=== PATIENT | female | born 1945 | race Asian ===

== ENCOUNTER 2024-05-27 05:28 | Observation (INO) | payer OTHER, SELFPAY ==
[2024-05-27] VITALS (10 sets, daily range): BP systolic 111–156; BP diastolic 58–80; PULSE 74; O2SAT 100; BMI 21.2
--- NOTE | 2024-05-27 00:46 | ED.GENMED ---
History of Present Illness
General
Chief Complaint: Fall
Time Seen by Provider: 05/27/24 00:31
History of Present Illness
History of Present Illness:
Patient is a 79-year-old woman with history of Parkinson's, hypertension, hyperlipidemia presenting to the emergency department back pain. Patient states that she had a fall 2 days ago. She tripped while using her walker. She landed on her right
side. She did not hit her head or lose consciousness. She is not on any blood thinners. She started develop lower back pain that radiated down her right leg. Today the pain was so severe that she was unable to ambulate with a walker and had to
use a wheelchair. Patient's professional organizer then brought her in for further evaluation. Patient denies any numbness tingling. She does have weakness secondary to the pain. She does have history of rib fracture. No chest wall pain today. No headache
Phy Exam
Physical Exam
Physical Exam:
GENERAL: no acute distress
HEENT: atraumatic, extraocular muscles intact, no signs of entrapment, dentition intact, no other obvious trauma
NECK: no midline tenderness, normal range of motion,
BACK: Lower lumbar midline tenderness, no other obvious trauma
CHEST: no tenderness, no flail segment, no subcutaneous emphysema, no other obvious trauma
LUNGS: clear to auscultation bilaterally
CARDIOVASCULAR: regular rate and rhythm
ABDOMEN: soft, non-tender, no masses, no other obvious trauma
PELVIS: stable, no obvious injury, mild tenderness over lower right hip
EXTREMITIES: moving all extremities, distal pulses intact, no other obvious trauma
NEUROLOGIC: awake, alert x 3, no focal deficits
Course
Orders/Labs/Results
Orders:
Orders
05/27/24 00:45
CT Abd/pelvis W Iv Cont Urgent
Comment:
Reason For Exam: back pain, fall
05/27/24 01:17
Basic Metabolic Panel Urgent
Complete Blood Count/With Diff Urgent
05/27/24 01:43
Add On- LAB Stat
Tests Added?: lactate
Urinalysis Reflex To Culture Urgent
Date Specimen was Collected: 05/27/24
Time Specimen was Collected: 02:09
05/27/24 01:50
Lactic Acid Urgent
Abnormal Lab Results
05/27/24
01:17
RBC 2.98 L 10^6/uL
(4.20-5.40)
Hgb 9.4 L g/dL
(12.0-16.0)
Hct 26.5 L %
(37.0-47.0)
MCH 31.5 H pg
(27.0-31.0)
Monocytes % 9.5 H %
(1.7-9.3)
Chloride 111 H mmol/L
(98-107)
Carbon Dioxide 14 L* mmol/L
(22-30)
BUN 35 H mg/dl
(7-17)
Glucose 115 H mg/dl
(70-99)
05/27/24 01:17
05/27/24 01:17
Vital Signs
Initial and Last Documented VS:
Initial Vital Signs
Temp Pulse Resp BP Pulse Ox
98.9 F 71 16 144/77 100
05/27/24 00:06 05/27/24 00:06 05/27/24 00:06 05/27/24 00:06 05/27/24 00:06
Last Documented Vital Signs
Temp Pulse Resp BP Pulse Ox
98.9 F 71 16 144/77 100
05/27/24 00:06 05/27/24 00:06 05/27/24 00:06 05/27/24 00:06 05/27/24 00:06
MDM/Problems Addressed
Differential Diagnosis Includes:
Patient is a 79-year-old woman presenting to the emergency department after a fall 2 days ago now with worsening lower back pain that radiates down to her right hip. Vitals are unremarkable and exam does show lower lumbar spinal tenderness as well
as tenderness over the hip with some limited range of motion secondary to the pain. Concern for compression fracture versus hip fracture. She did not hit her head or lose consciousness and has no neurodeficits to suggest traumatic intracranial
injury. Will obtain CT abdomen pelvis to rule out fractures.
*Critical Care Note
Total Time (30-74mins, 75-104mins- exclusive of procedures): Not Applicable
Update Note
Update Note:
Received critical bicarb. Patient is overall well-appearing. Will add on lactate and check urine. Pending CT scan at this time. After shared decision making patient will benefit from rehab placement given the difficulty with ambulation.
Anticipate discharge.
ED Attending Note
-
Portions of this chart may have been created with voice recognition software.� Occasional wrong word or��sound alike� substitutions may have occurred due to the inherent limitations of voice recognition software.
Discharge Plan
Departure
Referrals:
Jonatan Sommer MD [Family Provider] -
Interventions
Interventions:
*Risk Screen - Suicide Last Done: 05/27/24 00:06
*General Assessment Last Done: 05/27/24 00:06
*Neglect/Abuse Screening Last Done: 05/27/24 00:06
ED- Fall Risk Assessment Last Done: 05/27/24 00:06
*ED COVID-19 Vaccine History Last Done: 05/27/24 00:06
ED-Musculoskeletal Assessment Last Done: 05/27/24 00:41
ED- Neurological Assessment Last Done: 05/27/24 00:41
ED-Skin Assessment Last Done: 05/27/24 00:41
Discharge Date and Time
Print Language: SETSWANA
[2024-05-27 01:37] LABS: % Basophils 0.5 % (0-2); % Eosinophils 2.3 % (0-6); % Immature Granulocytes 0.2 % (0-0.5); % Lymphocytes 23.4 % (20.5-51.1); % Monocytes 9.5 % (1.7-9.3); % Neutrophils 64.1 % (42.2-75.2); Absolute Eosinophils 0.1 10^3/uL (0-0.7); Absolute Lymphocytes 1.3 10^3/uL (1.2-3.4); Absolute Monocytes 0.5 10^3/uL (0.1-0.6); Absolute Neutrophils 3.6 10^3/uL (1.4-6.5); Hematocrit 26.5 % (37.0-47.0); Hemoglobin 9.4 g/dL (12.0-16.0); Mean Corp Hgb Conc. 35.5 g/dL (33.0-37.0); Mean Corpuscular Hgb 31.5 pg (27.0-31.0); Mean Corpuscular Volume 88.9 fL (81.0-99.0); Nucleated Red Blood Cells % 0 %; Red Blood Cell Count 2.98 10^6/uL (4.20-5.40); Red Cell Dist. Width 12.9 % (11.5-14.5); White Blood Cell Count 5.6 10^3/uL (4.8-10.8)
[2024-05-27 01:39] LABS: Blood Urea Nitrogen 35 mg/dl (7-17); Calcium 8.9 mg/dl (8.4-10.2); Carbon Dioxide 14 mmol/L (22-30); Chloride 111 mmol/L (98-107); Glucose 115 mg/dl (70-99); Sodium 141 mmol/L (135-145); eGFR > 60.00
[2024-05-27 02:20] LABS: Urine Albumin Negative (Neg - Trace); Urine Bilirubin Negative (Negative); Urine Character Clear (Clear); Urine Color Yellow; Urine Glucose Negative (Negative); Urine Ketone Trace (Negative); Urine Leukocyte Trace (Negative); Urine Nitrite Negative (Negative); Urine Occult Blood Negative (Negative); Urine Urobilinogen Negative (Neg - 1+)
[2024-05-27 02:33] LABS: Platelet Count 130 10^3/uL (130-400)
[2024-05-27 02:34] LABS: Mean Platelet Volume 10.3 fL (7.4-10.4)
[2024-05-27 03:09] LABS: Urine Squamous Cell >30 /LPF (Few)
[2024-05-27 03:10] LABS: Urine Bacteria Few (Negative); Urine Urothelial Cell >30 /LPF (FEW)
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
[2024-05-27] MEDS: DITROPAN 5 MG PO (07:48)
[2024-05-27] MEDS: SINEMET 25-250 1 TABLET PO ×3 (07:48→21:30)
[2024-05-27] MEDS: ASPIR LOW (ENTERIC COATED) 81 MG PO (07:48)
[2024-05-27] MEDS: LR 500 IV (07:48)
[2024-05-27] MEDS: PROTONIX 40 MG PO (07:48)
[2024-05-27] MEDS: PRAVACHOL 40 MG PO (09:00)
[2024-05-27] MEDS: NORVASC 5 MG PO (09:00)
[2024-05-27] MEDS: LEXAPRO 5 MG PO (09:00)
[2024-05-27 10:09] LABS: Blood Urea Nitrogen 26 mg/dl (7-17); Calcium 9.2 mg/dl (8.4-10.2); Carbon Dioxide 21 mmol/L (22-30); Chloride 107 mmol/L (98-107); Estimated Creatinine Clearance 47 ml/min; Glucose 95 mg/dl (70-99); Iron 75 ug/dl (37-170); Magnesium 2.1 mg/dl (1.6-2.3); Potassium 3.8 mmol/L (3.5-5.1); Sodium 142 mmol/L (135-145); eGFR > 60.00
[2024-05-27 10:18] LABS: Percent Saturation 28 % (20-50); Total Iron Binding Capacity 261 ug/dl (265-497)
[2024-05-27 10:49] LABS: TSH 3.04 uIU/ml (0.47-4.68)
[2024-05-27 11:09] LABS: Vitamin B12 536 pg/ml (239-931)
--- NOTE | 2024-05-27 11:56 | W.PN.HOSP.TC ---
Today's Communication/Plan
-
PT/OT evaluation
As needed analgesics
SNF planning
Assessment / Plan
Assessment / Plan
#Acute on chronic back pain
#H/O T12 and L2 compression fractures
#Ambulatory dysfunction
-following mechanical fall a few days prior to admission
-Has associated radicular symptoms and pain that limits her ambulatory function
-CT scan on arrival showed old age indeterminant compression fractures at T12 and L2
-Currently on Tylenol and Toradol as needed for pain as well as morphine for severe breakthrough
-PT/OT ordered, case management for SNF placement
#Normocytic anemia
-Hemoglobin on arrival was 9.4, no previous labs, unclear baseline
-No obvious signs of bleeding, iron panel consistent with anemia of chronic disease
-Will trend CBC while here
#Hypertension
-Home medication includes amlodipine 5 mg daily
-No known history of hypertensive systemic disease
-Suspect hypotension/orthostasis is bigger issue with H/O Parkinson's
-Will monitor BP closely for here, observe for signs of orthostasis
#Dyslipidemia
-No known ASCVD history, Home regimen includes moderate intensity statin
#Parkinson's disease
-Home medication includes carbidopa levodopa 3 times daily
-No known autonomic complications, no resting tremor on exam
-Stable
#GERD
-Home regimen includes oral PPI daily
-No history of Mireles's esophagus or erosive disease
-No red flag symptoms
DVT prophylaxis: Lovenox
Diet: Regular
CODE STATUS: Full code
Anticipated Discharge: Within 24 hours
Subjective/Interval History
-
Date of Service: May 27, 2024
Patient was seen and examined at the bedside. No acute events overnight. AFVSS this morning.
She states she does have some back pain still, she seems calm and not in pain upon my examination
She denies chest pain, shortness of breath, fevers or chills, nausea or vomiting, urinary issue, abnormal bleeding or bruising, paresthesias or weakness.
Objective Data
-
Labs:
Laboratory Results
05/27/24 05/27/24
01:17 08:59
WBC 5.6
Hgb 9.4 L
Hct 26.5 L
Plt Count 130
Sodium 141 142
Potassium 3.8
Chloride 111 H 107
Carbon Dioxide 14 L* 21 L
BUN 35 H 26 H
Creatinine 0.8 0.8
Glucose 115 H 95
Calcium 8.9 9.2
Vital Signs:
Vital Signs
Temp Pulse Resp BP Pulse Ox
99.3 F 62 16 138/65 97
05/27/24 07:10 05/27/24 07:10 05/27/24 07:10 05/27/24 09:00 05/27/24 07:10
I&O
05/26/24 05/27/24 05/28/24
06:59 06:59 06:59
Intake Total 240 / 240
Output Total 100 / 100
Balance -100 / -100 240 / 240
[2024-05-27] MEDS: LOVENOX 40 MG SC (17:11)
--- NOTE | 2024-05-27 17:14 | CM ---
Alert awake oriented patient who lives with her room mate Toshia in a 1 story home with 3 steps. She is assisted all activates of daily living.Spokew ith her healthcare consultant Mary She has 20 hours of care giving daily.She uses walker wheel chair
,cane.Lucero given pt did not want to sign ,.LUCERO explained to healthcare consultant also .Requested order for OT from .
Had VN in past . No SNF hx
Pharmacy [facility]
PCP Dr Sommer
PLAN Need OT may need SNF with auth
[2024-05-27] MEDS: DELTASONE 20 MG PO (18:03)
[2024-05-27] MEDS: TORADOL 10 MG IV (20:27)
[2024-05-27] MEDS: PREMARIN VAGINAL CREAM 1 APPLIC VAG (21:30)
[2024-05-28 07:18] VITALS: BP 162/80
[2024-05-28 07:52] LABS: Blood Urea Nitrogen 27 mg/dl (7-17); Calcium 9.2 mg/dl (8.4-10.2); Carbon Dioxide 20 mmol/L (22-30); Chloride 106 mmol/L (98-107); Estimated Creatinine Clearance 53 ml/min; Glucose 139 mg/dl (70-99); Potassium 4.4 mmol/L (3.5-5.1); Sodium 141 mmol/L (135-145); eGFR > 60.00
[2024-05-28 08:54] LABS: % Basophils 0.4 % (0-2); % Immature Granulocytes 0.2 % (0-0.5); % Lymphocytes 19.5 % (20.5-51.1); % Monocytes 1.5 % (1.7-9.3); % Neutrophils 78.4 % (42.2-75.2); Absolute Lymphocytes 0.9 10^3/uL (1.2-3.4); Absolute Monocytes 0.1 10^3/uL (0.1-0.6); Absolute Neutrophils 3.8 10^3/uL (1.4-6.5); Hematocrit 31.7 % (37.0-47.0); Hemoglobin 10.9 g/dL (12.0-16.0); Mean Corp Hgb Conc. 34.4 g/dL (33.0-37.0); Mean Corpuscular Hgb 31.2 pg (27.0-31.0); Mean Corpuscular Volume 90.8 fL (81.0-99.0); Mean Platelet Volume 11.1 fL (7.4-10.4); Nucleated Red Blood Cells % 0 %; Platelet Count 153 10^3/uL (130-400); Red Blood Cell Count 3.49 10^6/uL (4.20-5.40); Red Cell Dist. Width 12.5 % (11.5-14.5); White Blood Cell Count 4.8 10^3/uL (4.8-10.8)
[2024-05-28] MEDS: PRAVACHOL 40 MG PO (08:59)
[2024-05-28] MEDS: DELTASONE 20 MG PO (08:59)
[2024-05-28] MEDS: ASPIR LOW (ENTERIC COATED) 81 MG PO (08:59)
[2024-05-28] MEDS: NORVASC 5 MG PO (08:59)
[2024-05-28] MEDS: DITROPAN 5 MG PO (08:59)
[2024-05-28] MEDS: SINEMET 25-250 1 TABLET PO ×3 (08:59→21:46)
[2024-05-28] MEDS: PROTONIX 40 MG PO (08:59)
[2024-05-28] MEDS: LEXAPRO 5 MG PO (08:59)
[2024-05-28 11:26] LABS: Hepatitis C Antibody Negative (Negative)
--- NOTE | 2024-05-28 11:51 | W.PN.HOSP.TC ---
Today's Communication/Plan
-
Continue with PT/OT
As needed analgesia
Discharge planning to SNF
Compression stockings for CVI
Assessment / Plan
Assessment / Plan
#Acute on chronic back pain
#H/O T12 and L2 compression fractures
#Ambulatory dysfunction
-following mechanical fall a few days prior to admission
-Has associated radicular symptoms and pain that limits her ambulatory function
-CT scan on arrival showed old age indeterminant compression fractures at T12 and L2
-Currently on Tylenol and Toradol as needed for pain as well as morphine for severe breakthrough
-PT/OT ordered, case management for SNF placement
#Normocytic anemia
-Hemoglobin on arrival was 9.4, no previous labs, unclear baseline
-No obvious signs of bleeding, iron panel consistent with anemia of chronic disease
-Will trend CBC while here
#Hypertension
-Home medication includes amlodipine 5 mg daily
-No known history of hypertensive systemic disease
-Suspect hypotension/orthostasis is bigger issue with H/O Parkinson's
-Will monitor BP closely for here, observe for signs of orthostasis
#Dyslipidemia
-No known ASCVD history, Home regimen includes moderate intensity statin
#Parkinson's disease
-Home medication includes carbidopa levodopa 3 times daily
-No known autonomic complications, no resting tremor on exam
-Stable
#GERD
-Home regimen includes oral PPI daily
-No history of Mireles's esophagus or erosive disease
-No red flag symptoms
#Chronic venous insufficiency
-Has mild, asymmetric lower extremity edema
-No history of heart disease, no symptoms or other signs suspicious for heart failure
-Encouraged leg elevation as possible, compression stockings
DVT prophylaxis: Lovenox
Diet: Regular
CODE STATUS: Full code
Anticipated Discharge: Within 24 hours
Subjective/Interval History
-
Date of Service: May 28, 2024
Seen and examined while seated in the chair. No acute events overnight. AFVSS this morning.
She does have significant pain with weightbearing. She does state that her pain is better when she is moving then when she first fell at home, also better than when she came to the hospital
She otherwise denies any acute complaints including chest pain, shortness of breath, fevers or chills, nausea, vomiting, diarrhea, constipation, abnormal bleeding or bruising, urinary issue, paresthesias or weakness.
Objective Data
-
Labs:
Laboratory Results
05/28/24
06:10
WBC 4.8
Hgb 10.9 L
Hct 31.7 L
Plt Count 153
Sodium 141
Potassium 4.4
Chloride 106
Carbon Dioxide 20 L
BUN 27 H
Creatinine 0.7
Glucose 139 H
Calcium 9.2
Vital Signs:
Vital Signs
Temp Pulse Resp BP Pulse Ox
98.5 F 66 18 162/80 98
05/28/24 07:18 05/28/24 07:18 05/28/24 07:18 05/28/24 07:18 05/28/24 08:20
I&O
05/27/24 05/28/24 05/29/24
06:59 06:59 06:59
Intake Total 240 / 240
Output Total 100 / 100
Balance -100 / -100 240 / 240
Review of Systems
-
History Source: Patient
All other systems: Reviewed and negative
Physical Exam
-
General: No Apparent Distress, Comfortable, Conversant and Other (Thin female)
HEENT: Normocephalic, Atraumatic, Moist Mucous Membranes and Anicteric
Respiratory: Clear to Auscultation and Non Labored Respirations; Negative Wheezes, Rales or Rhonchi
Cardiac: Regular Rhythm and S1/S2; Negative Murmur, Rub, JVD or Gallop
GI: Soft, Nontender, Nondistended and Normal Bowel Sounds
Musculoskeletal: No Clubbing, No Cyanosis and Other (1+ pitting edema RLE, trace LLE)
Skin: Warm and Dry; Negative Rash
Neuro: AO x 3, Nonfocal/Grossly Intact and Central Nerve's Intact; Negative Tremors
Psych: Calm
Data Reviewed
-
CT Scan: Report Reviewed by me and Discussed with Patient
Labs: Labs Reviewed by me and Discussed with Patient
[2024-05-28 15:13] VITALS: BP 140/71
--- NOTE | 2024-05-28 15:39 | CM ---
Requested OT order from MD.
PT recommends SNF.Assist of 2 .
Spoke with Mary critical care registered nurse she said [facility] requested SNF if needed.
Referral placed for [facility]
Will need auth .
PLAN To SNF after located and auth obtained
[2024-05-28] MEDS: LOVENOX 40 MG SC (17:35)
[2024-05-28] MEDS: PREMARIN VAGINAL CREAM 1 APPLIC VAG (21:46)
--- NOTE | 2024-05-28 23:31 | PTCARENOTE ---
Patient refusing 2300 vitals. Will continue to monitor.
--- NOTE | 2024-05-29 01:16 | PTCARENOTE ---
Spoke on the phone with patient family member, Suzanne who is requesting information and an update on patient's status. She is not listed as an emergency contact. Patient is confused and cannot provide consent at this time. Family member expressing
frustration and was upset over phone. [employer] explained to family member that she is not listed as a patient contact and such requested information will violate HIPAA law and patient privacy. Suggested to family member to see patient in hospital
during visiting hours.
[2024-05-29] MEDS: HALDOL 1 MG IV (01:47)
[2024-05-29 03:18] VITALS: BP 157/82
[2024-05-29 08:19] VITALS: BP 145/85
[2024-05-29] MEDS: PROTONIX 40 MG PO (08:49)
[2024-05-29] MEDS: SINEMET 25-250 1 TABLET PO ×2 (08:49→15:26)
[2024-05-29] MEDS: NORVASC 5 MG PO (08:49)
[2024-05-29] MEDS: LEXAPRO 5 MG PO (08:49)
[2024-05-29] MEDS: ASPIR LOW (ENTERIC COATED) 81 MG PO (08:49)
[2024-05-29] MEDS: PRAVACHOL 40 MG PO (08:49)
[2024-05-29] MEDS: DITROPAN 5 MG PO (08:49)
--- NOTE | 2024-05-29 11:02 | W.PN.HOSP.TC ---
Today's Communication/Plan
-
SNF placement
Assessment / Plan
Assessment / Plan
#Acute on chronic back pain
#H/O T12 and L2 compression fractures
#Ambulatory dysfunction
-following mechanical fall a few days prior to admission
-Has associated radicular symptoms and pain that limits her ambulatory function
-CT scan on arrival showed old age indeterminant compression fractures at T12 and L2
-Currently on Tylenol and Toradol as needed for pain as well as morphine for severe breakthrough
-PT/OT ordered, case management for SNF placement
-Medically stable for discharge, pending placement
#Normocytic anemia
-Hemoglobin on arrival was 9.4, and then 10.9 on repeat, unclear baseline
-No obvious signs of bleeding, iron panel consistent with anemia of chronic disease
#Hypertension
-Home medication includes amlodipine 5 mg QD, no history of hypertensive systemic disease
-Suspect hypotension/orthostasis is bigger issue with H/O Parkinson's
-Will monitor BP closely for here, observe for signs of orthostasis
#Dyslipidemia
-No known ASCVD history, Home regimen includes moderate intensity statin
#Parkinson's disease
-Home medication includes carbidopa levodopa 3 times daily
-No known autonomic complications, no resting tremor on exam
-Stable
#GERD
-Home regimen includes oral PPI daily
-No history of Mireles's esophagus or erosive disease
-No red flag symptoms
#Chronic venous insufficiency
-Has mild, asymmetric lower extremity edema
-No history of heart disease, no symptoms or other signs suspicious for heart failure
-Encouraged leg elevation as possible, compression stockings
DVT prophylaxis: Lovenox
Diet: Regular
CODE STATUS: Full code
Anticipated Discharge: Today
Subjective/Interval History
-
Date of Service: May 29, 2024
Seen and examined at the bedside. No acute events overnight. AFVSS this morning.
Pending placement to SNF. Radicular pain is improving daily, minimal while at rest still present with movement and weight-bear
Denies acute complaints including chest pain, shortness of breath, fevers or chills, nausea, vomiting, diarrhea, constipation, abnormal bleeding or bruising, paresthesias or weakness.
Objective Data
-
Vital Signs:
Vital Signs
Temp Pulse Resp BP Pulse Ox
97.7 F 81 18 145/85 97
05/29/24 08:19 05/29/24 08:19 05/29/24 08:19 05/29/24 08:19 05/29/24 08:19
I&O
05/28/24 05/29/24 05/30/24
06:59 06:59 06:59
Intake Total 240 / 240 900 / 900
Balance 240 / 240 900 / 900
Review of Systems
-
History Source: Patient
All other systems: Reviewed and negative
Physical Exam
-
General: Well Nourished, No Apparent Distress and Comfortable
HEENT: Normocephalic, Atraumatic, Moist Mucous Membranes and Anicteric
Respiratory: Clear to Auscultation and Non Labored Respirations; Negative Wheezes, Rales or Rhonchi
Cardiac: Regular Rhythm and S1/S2; Negative Murmur, Rub or Gallop
GI: Soft, Nontender, Nondistended and Normal Bowel Sounds
Musculoskeletal: No Clubbing, No Cyanosis and No Edema
Skin: Warm and Dry; Negative Rash
Neuro: AO x 3, Nonfocal/Grossly Intact and Central Nerve's Intact
Psych: Calm
[2024-05-29] MEDS: MIRALAX 17 GRAMS PO (15:26)
[2024-05-29] MEDS: SENOKOT-S 1 TABLET PO (15:26)
[2024-05-29 16:40] VITALS: BP 136/70
[2024-05-29] MEDS: LOVENOX 40 MG SC (17:39)
[2024-05-29] MEDS: PREMARIN VAGINAL CREAM 1 APPLIC VAG (21:08)
[2024-05-29] MEDS: SINEMET 25-250 PO (21:08)
[2024-05-29 23:30] VITALS: BP 145/74
[2024-05-30 00:19] VITALS: BP 145/74
[2024-05-30] MEDS: SINEMET 25-250 PO (05:10)
[2024-05-30 07:00] VITALS: BP 150/79
[2024-05-30] MEDS: PROTONIX 40 MG PO (08:50)
[2024-05-30] MEDS: SINEMET 25-250 1 TABLET PO ×3 (08:50→21:31)
[2024-05-30] MEDS: LEXAPRO 5 MG PO (08:50)
[2024-05-30] MEDS: ASPIR LOW (ENTERIC COATED) 81 MG PO (08:50)
[2024-05-30] MEDS: PRAVACHOL 40 MG PO (08:50)
[2024-05-30] MEDS: DITROPAN 5 MG PO (08:50)
[2024-05-30] MEDS: NORVASC 5 MG PO (08:50)
--- NOTE | 2024-05-30 11:04 | W.PN.HOSP.TC ---
Today's Communication/Plan
-
SNF placement
Assessment / Plan
Assessment / Plan
#Acute on chronic back pain
#H/O T12 and L2 compression fractures
#Ambulatory dysfunction
-following mechanical fall a few days prior to admission
-Has associated radicular symptoms and pain that limits her ambulatory function
-CT scan on arrival showed old age indeterminant compression fractures at T12 and L2
-Currently on Tylenol and Toradol as needed for pain as well as morphine for severe breakthrough
-PT/OT ordered, case management for SNF placement
-Medically stable for discharge, pending placement
#Normocytic anemia
-Hemoglobin on arrival was 9.4, and then 10.9 on repeat, unclear baseline
-No obvious signs of bleeding, iron panel consistent with anemia of chronic disease
#Hypertension
-Home medication includes amlodipine 5 mg QD, no history of hypertensive systemic disease
-Suspect hypotension/orthostasis is bigger issue with H/O Parkinson's
-Will monitor BP closely for here, observe for signs of orthostasis
#Dyslipidemia
-No known ASCVD history, Home regimen includes moderate intensity statin
#Parkinson's disease
-Home medication includes carbidopa levodopa 3 times daily
-No known autonomic complications, no resting tremor on exam
-Stable
#GERD
-Home regimen includes oral PPI daily
-No history of Mireles's esophagus or erosive disease
-No red flag symptoms
#Chronic venous insufficiency
-Has mild, asymmetric lower extremity edema
-No history of heart disease, no symptoms or other signs suspicious for heart failure
-Encouraged leg elevation as possible, compression stockings
DVT prophylaxis: Lovenox
Diet: Regular
CODE STATUS: Full code
Anticipated Discharge: Within 24 hours
Subjective/Interval History
-
Date of Service: May 30, 2024
Seen and examined at bedside. No acute events overnight. AFVSS this morning.
She states she feels fairly well, improved pain daily. Pending insurance authorization and SNF placement
Denies any acute complaints
Objective Data
-
Vital Signs:
Vital Signs
Temp Pulse Resp BP Pulse Ox
98.3 F 89 14 150/79 97
05/30/24 07:00 05/30/24 07:00 05/30/24 07:00 05/30/24 07:00 05/30/24 08:15
I&O
05/29/24 05/30/24 05/31/24
06:59 06:59 06:59
Intake Total 900 / 900 960 / 960
Balance 900 / 900 960 / 960
Review of Systems
-
History Source: Patient
All other systems: Reviewed and negative
Physical Exam
-
General: Well Nourished, No Apparent Distress and Comfortable
HEENT: Normocephalic, Atraumatic and Moist Mucous Membranes
Respiratory: Clear to Auscultation and Non Labored Respirations
Cardiac: Regular Rhythm and S1/S2; Negative Murmur, Rub or Gallop
GI: Soft, Nontender, Nondistended and Normal Bowel Sounds
Musculoskeletal: No Clubbing, No Cyanosis, No Edema and Other (Minimal tenderness to spine)
Skin: Warm, Dry and Normal Turgor; Negative Rash
Neuro: AO x 3, Nonfocal/Grossly Intact and Central Nerve's Intact
Psych: Calm
--- NOTE | 2024-05-30 12:57 | CM ---
Patient seen at bedside. Patient stated that she did now know for sure what the plan was, patient just wanted to remember her who had . CM will continue to follow for discharge planning needs.
Plan; SNF pending physician assessment. Patient will need AUTH.
[2024-05-30 15:00] VITALS: BP 125/58
[2024-05-30] MEDS: LOVENOX 40 MG SC (17:13)
[2024-05-30] MEDS: PREMARIN VAGINAL CREAM 1 APPLIC VAG (21:32)
[2024-05-30 23:30] VITALS: BP 147/80
[2024-05-31] MEDS: TORADOL 10 MG IV (04:13)
[2024-05-31 07:35] VITALS: BP 155/83
--- NOTE | 2024-05-31 08:58 | W.PN.HOSP.TC ---
Today's Communication/Plan
-
Awaiting auth for placement
Assessment / Plan
Assessment / Plan
Physical Exam
General: Not in acute distress
HEENT: Normocephalic
Respiratory: Clear to Auscultation Bilaterally
Cardiac: Regular Rhythm and S1/S2
GI: Soft, Nontender, Nondistended and Normal Bowel Sounds
Musculoskeletal: No Cyanosis, No Edema and Other (Minimal tenderness to spine)
Skin: Warm, Dry and Normal Turgor
Neuro: AAO x 3, Nonfocal/Grossly Intact and Central Nerve's Intact
Psych: Calm
Assessment/Plan
#Acute on chronic back pain
#H/O T12 and L2 compression fractures
#Ambulatory dysfunction
-following mechanical fall a few days prior to admission
-Has associated radicular symptoms and pain that limits her ambulatory function
-CT scan on arrival showed old age indeterminant compression fractures at T12 and L2
-Currently on Tylenol and Toradol as needed for pain as well as morphine for severe breakthrough
-PT/OT ordered, case management for SNF placement
-Medically stable for discharge, pending placement
#Normocytic anemia
-Hemoglobin on arrival was 9.4, and then 10.9 on repeat, unclear baseline
-No obvious signs of bleeding, iron panel consistent with anemia of chronic disease
#Hypertension
-Home medication includes amlodipine 5 mg QD, no history of hypertensive systemic disease
-Suspect hypotension/orthostasis is bigger issue with H/O Parkinson's
-Will monitor BP closely for here, observe for signs of orthostasis
#Dyslipidemia
-No known ASCVD history, Home regimen includes moderate intensity statin
#Parkinson's disease
-Home medication includes carbidopa levodopa 3 times daily
-No known autonomic complications, no resting tremor on exam
-Stable
#GERD
-Home regimen includes oral PPI daily
-No history of Mireles's esophagus or erosive disease
-No red flag symptoms
#Chronic venous insufficiency
-Has mild, asymmetric lower extremity edema
-No history of heart disease, no symptoms or other signs suspicious for heart failure
-Encouraged leg elevation as possible, compression stockings
#Neurogenic Bladder
#History of Bowel Resection
DVT prophylaxis: Lovenox
Diet: Regular
CODE STATUS: Full code
Anticipated Discharge: 24 - 48 hours
Subjective/Interval History
-
Date of Service: May 31, 2024
Patient was seen and examined. No new significant events or complaints, except she was trying to take her home meds from her bag, I discussed this patient's nurse and medications were removed from her possession and sent to pharmacy.
Objective Data
-
Vital Signs:
Vital Signs
Temp Pulse Resp BP Pulse Ox
97.1 F 79 16 147/80 95
05/30/24 23:30 05/30/24 23:30 05/30/24 23:30 05/30/24 23:30 05/31/24 00:28
I&O
05/30/24 05/31/24 06/01/24
06:59 06:59 06:59
Intake Total 960 / 960 300 / 300
Balance 960 / 960 300 / 300
[2024-05-31] MEDS: PRAVACHOL 40 MG PO (09:04)
[2024-05-31] MEDS: NORVASC 5 MG PO (09:04)
[2024-05-31] MEDS: ASPIR LOW (ENTERIC COATED) 81 MG PO (09:04)
[2024-05-31] MEDS: SINEMET 25-250 1 TABLET PO ×3 (09:04→21:42)
[2024-05-31] MEDS: DITROPAN 5 MG PO (09:04)
[2024-05-31] MEDS: LEXAPRO 5 MG PO (09:04)
[2024-05-31] MEDS: PROTONIX 40 MG PO (09:05)
--- NOTE | 2024-05-31 12:21 | PTCARENOTE ---
pt found trying to take medications from home left in belongings bag. medication counted and sent to pharmacy
[2024-05-31 15:21] VITALS: BP 119/66
[2024-05-31 16:16] VITALS: BP 131/72; PULSE 81; O2SAT 97
--- NOTE | 2024-05-31 17:12 | CM ---
Multiple attempts to reach pt's family. VM left for Suzanne requesting return call to discuss discharge plans.
CM to follow up in AM.
[2024-05-31] MEDS: MIRALAX 17 GRAMS PO (17:52)
[2024-05-31] MEDS: LOVENOX 40 MG SC (17:52)
[2024-05-31] MEDS: TYLENOL 650 MG PO (21:42)
[2024-05-31] MEDS: PREMARIN VAGINAL CREAM 1 APPLIC VAG (21:43)
[2024-05-31 23:23] VITALS: BP 155/91
[2024-06-01 07:30] VITALS: BP 117/79
[2024-06-01] MEDS: SINEMET 25-250 1 TABLET PO ×3 (07:56→21:09)
[2024-06-01] MEDS: NORVASC 5 MG PO (07:56)
[2024-06-01] MEDS: PRAVACHOL 40 MG PO (07:56)
[2024-06-01] MEDS: LEXAPRO 5 MG PO (07:56)
[2024-06-01] MEDS: PROTONIX 40 MG PO (07:56)
[2024-06-01] MEDS: ASPIR LOW (ENTERIC COATED) 81 MG PO (07:56)
[2024-06-01] MEDS: SENOKOT-S 1 TABLET PO (07:56)
[2024-06-01] MEDS: DITROPAN 5 MG PO (07:56)
[2024-06-01] MEDS: MIRALAX 17 GRAMS PO (07:57)
--- NOTE | 2024-06-01 09:37 | CM ---
Addendum entered by Rashida Fabian 06/01/24 10:19:
SNF authorization request submitted via [employer] for transfer to SNF rehab at [facility] [address]. Reference Number [id number].
Await determination regarding SNF request.
Original Note:
CM following for SNF transfer. I spoke with Ayaka's sister Suzanne who asked for a facility close to [place]. Referral sent to [facility] [address] per Suzanne's request. Will submit authorization request via [employer]ail[employer].
[2024-06-01] MEDS: DULCOLAX 10 MG RECTAL (13:01)
--- NOTE | 2024-06-01 13:15 | W.PN.HOSP.TC ---
Today's Communication/Plan
-
Discharge
Assessment / Plan
Assessment / Plan
Physical Exam
General: Not in acute distress
HEENT: Normocephalic
Respiratory: Clear to Auscultation Bilaterally
Cardiac: Regular Rhythm and S1/S2
GI: Soft, Nontender, Nondistended and Normal Bowel Sounds
Musculoskeletal: No Cyanosis, No Edema and Other (Minimal tenderness to spine)
Skin: Warm, Dry and Normal Turgor
Neuro: AAO x 3, Nonfocal/Grossly Intact and Central Nerve's Intact
Psych: Calm
Assessment/Plan
#Acute on chronic back pain
#H/O T12 and L2 compression fractures
#Ambulatory dysfunction
-following mechanical fall a few days prior to admission
-Has associated radicular symptoms and pain that limits her ambulatory function
-CT scan on arrival showed old age indeterminant compression fractures at T12 and L2
-Currently on Tylenol and Toradol as needed for pain as well as morphine for severe breakthrough
-PT/OT ordered, case management for SNF placement
-Medically stable for discharge, pending placement
#Constipation
-No bowel movement for 4 days leading up to 06/01/24
-Bowel regimen
-Dulcolax suppository today
#Normocytic anemia
-Hemoglobin on arrival was 9.4, and then 10.9 on repeat, unclear baseline
-No obvious signs of bleeding, iron panel consistent with anemia of chronic disease
#Hypertension
-Home medication includes amlodipine 5 mg QD, no history of hypertensive systemic disease
-Suspect hypotension/orthostasis is bigger issue with H/O Parkinson's
-Will monitor BP closely for here, observe for signs of orthostasis
#Dyslipidemia
-No known ASCVD history, Home regimen includes moderate intensity statin
#Parkinson's disease
-Home medication includes carbidopa levodopa 3 times daily
-No known autonomic complications, no resting tremor on exam
-Stable
#GERD
-Home regimen includes oral PPI daily
-No history of Mireles's esophagus or erosive disease
-No red flag symptoms
#Chronic venous insufficiency
-Has mild, asymmetric lower extremity edema
-No history of heart disease, no symptoms or other signs suspicious for heart failure
-Encouraged leg elevation as possible, compression stockings
#Neurogenic Bladder
#History of Bowel Resection
DVT prophylaxis: Lovenox
Diet: Regular
CODE STATUS: Full code
More than 30 minutes spent in discharge including
Final examination of the patient
Summarizing hospital stay
Instructions for continuing care to all relevant caregivers
Preparation of discharge records, prescriptions, and referral forms
Total time spent (in minutes): 38
Anticipated Discharge: Today
Subjective/Interval History
-
Date of Service: June 01, 2024
Patient was seen and examined. She reported no new symptoms or complaints.
Objective Data
-
Vital Signs:
Vital Signs
Temp Pulse Resp BP Pulse Ox
98.0 F 79 18 117/79 96
06/01/24 07:30 06/01/24 07:30 06/01/24 07:30 06/01/24 07:30 06/01/24 07:30
I&O
05/31/24 06/01/24 06/02/24
06:59 06:59 06:59
Intake Total 300 / 300 600 / 600
Balance 300 / 300 600 / 600
--- NOTE | 2024-06-01 15:00 | CM ---
Addendum entered by Rashida Fabian 06/01/24 16:17:
[employer] authorization is still pending at this time. CM will follow up in AM for SNF auth. Ayaka's sister is aware of plan.
Original Note:
Patient is ready for discharge, however [employer] has not yet authorized transfer to SNF.
CM will continue checking [employer] for updates.
Plan: Transfer to [facility] pending [employer] authorization.
[2024-06-01 15:25] VITALS: BP 123/75
[2024-06-01] MEDS: LOVENOX 40 MG SC (18:32)
[2024-06-01] MEDS: PREMARIN VAGINAL CREAM 1 APPLIC VAG (21:09)
[2024-06-01 23:51] VITALS: BP 142/68
[2024-06-02 08:13] VITALS: BP 151/78
[2024-06-02] MEDS: PROTONIX 40 MG PO (08:15)
[2024-06-02] MEDS: SINEMET 25-250 1 TABLET PO ×3 (08:15→21:36)
[2024-06-02] MEDS: LEXAPRO 5 MG PO (08:15)
[2024-06-02] MEDS: PRAVACHOL 40 MG PO (08:15)
[2024-06-02] MEDS: DITROPAN 5 MG PO (08:15)
[2024-06-02] MEDS: ASPIR LOW (ENTERIC COATED) 81 MG PO (08:15)
[2024-06-02] MEDS: NORVASC 5 MG PO (08:15)
[2024-06-02] MEDS: MIRALAX 17 GRAMS PO (08:15)
--- NOTE | 2024-06-02 09:49 | CM ---
Addendum entered by Rashida Fabian 06/02/24 16:33:
CM awaiting SNF authorization from [facility]; still pending in [employer]. [facility] has already 'hit their max' for admissions today, so hoping authorization will be approved by tomorrow for transfer.
Will continue to follow.
Original Note:
Patient is ready for discharge to SNF pending insurance authorization. PT and OT notes need to be within 24 hours of request for precert; pt needs to be seen today for SNF authorization to be considered by [facility]. Contacted [phone] to request pt be
seen today for updated notes.
CM to fax updated clinical from today to [facility] for review. Currently [facility] for bed mobility and transfers; will need ambulance transport to SNF.
Plan: Transfer to [facility] pending updated clinical and authorization.
[2024-06-02 10:35] VITALS: BP 132/78; PULSE 86; O2SAT 98
[2024-06-02 10:53] VITALS: BP 132/78; PULSE 90; O2SAT 99
--- NOTE | 2024-06-02 11:04 | W.PN.HOSP.TC ---
Today's Communication/Plan
-
Auth and placement still pending as per case management
Assessment / Plan
Assessment / Plan
Physical Exam
General: Not in acute distress
HEENT: Normocephalic
Respiratory: Clear to Auscultation Bilaterally
Cardiac: Regular Rhythm and S1/S2
GI: Soft, Nontender, Nondistended and Normal Bowel Sounds
Musculoskeletal: No Cyanosis, No Edema and Other (Minimal tenderness to spine)
Skin: Warm, Dry and Normal Turgor
Neuro: AAO x 3, Nonfocal/Grossly Intact and Central Nerve's Intact
Psych: Calm
Assessment/Plan
#Acute on chronic back pain
#H/O T12 and L2 compression fractures
#Ambulatory dysfunction
-following mechanical fall a few days prior to admission
-Has associated radicular symptoms and pain that limits her ambulatory function
-CT scan on arrival showed old age indeterminant compression fractures at T12 and L2
-Currently on Tylenol and Toradol as needed for pain as well as morphine for severe breakthrough
-PT/OT ordered, case management for SNF placement
-Medically stable for discharge, pending placement
#Constipation
-No bowel movement for 4 days leading up to 06/01/24
-Bowel regimen
-Dulcolax suppository on 06/01/24 with resulting large formed bowel movement
#Normocytic anemia
-Hemoglobin on arrival was 9.4, and then 10.9 on repeat, unclear baseline
-No obvious signs of bleeding, iron panel consistent with anemia of chronic disease
#Hypertension
-Home medication includes amlodipine 5 mg QD, no history of hypertensive systemic disease
-Suspect hypotension/orthostasis is bigger issue with H/O Parkinson's
-Will monitor BP closely for here, observe for signs of orthostasis
#Dyslipidemia
-No known ASCVD history, Home regimen includes moderate intensity statin
#Parkinson's disease
-Home medication includes carbidopa levodopa 3 times daily
-No known autonomic complications, no resting tremor on exam
-Stable
#GERD
-Home regimen includes oral PPI daily
-No history of Mireles's esophagus or erosive disease
-No red flag symptoms
#Chronic venous insufficiency
-Has mild, asymmetric lower extremity edema
-No history of heart disease, no symptoms or other signs suspicious for heart failure
-Encouraged leg elevation as possible, compression stockings
#Neurogenic Bladder
#History of Bowel Resection
DVT prophylaxis: Lovenox
Diet: Regular
CODE STATUS: Full code
Anticipated Discharge: Within 24 hours
Subjective/Interval History
-
Date of Service: June 02, 2024
Patient was seen and examined. She was brushing her teeth and appeared comfortable. No new symptoms or complaints.
Objective Data
-
Vital Signs:
Vital Signs
Temp Pulse Resp BP Pulse Ox
98.2 F 72 18 151/78 98
06/02/24 08:13 06/02/24 08:13 06/02/24 08:13 06/02/24 08:13 06/02/24 08:13
I&O
06/01/24 06/02/24 06/03/24
06:59 06:59 06:59
Intake Total 600 / 600 480 / 480
Balance 600 / 600 480 / 480
[2024-06-02 16:25] VITALS: BP 140/72
[2024-06-02] MEDS: LOVENOX 40 MG SC (17:05)
[2024-06-02] MEDS: PREMARIN VAGINAL CREAM 1 APPLIC VAG (21:37)
[2024-06-02 23:42] VITALS: BP 144/71
[2024-06-03 07:49] VITALS: BP 153/90
[2024-06-03] MEDS: MIRALAX 17 GRAMS PO (08:52)
[2024-06-03] MEDS: ASPIR LOW (ENTERIC COATED) 81 MG PO (08:53)
[2024-06-03] MEDS: PRAVACHOL 40 MG PO (08:53)
[2024-06-03] MEDS: DITROPAN 5 MG PO (08:53)
[2024-06-03] MEDS: LEXAPRO 5 MG PO (08:53)
[2024-06-03] MEDS: PROTONIX 40 MG PO (08:53)
[2024-06-03] MEDS: SINEMET 25-250 1 TABLET PO ×2 (08:53→16:52)
[2024-06-03] MEDS: NORVASC 5 MG PO (09:15)
--- NOTE | 2024-06-03 10:32 | CM ---
CM still awaiting [employer] authorization for transfer to [facility]. Pending authorization [id number].
CM spoke with Ayaka's sister, Suzanne. She is concerned that the morphine is making Ayaka is very confused. She called her sister stating that her son was and rambled about other things that did not make sense according to Suzanne. CM discussed
with RN who advised that Ayaka has not been given any morphine during the hospitalization.
Plan: CM to continue to follow for transfer to [facility] when authorization is obtained.
--- NOTE | 2024-06-03 11:56 | W.PN.HOSP.TC ---
Today's Communication/Plan
-
Discharge
Assessment / Plan
Assessment / Plan
Physical Exam
General: Not in acute distress
HEENT: Normocephalic
Respiratory: Clear to Auscultation Bilaterally
Cardiac: Regular Rhythm and S1/S2
GI: Soft, Nontender, Nondistended and Normal Bowel Sounds
Musculoskeletal: No Cyanosis, No Edema and Other (Minimal tenderness to spine)
Skin: Warm, Dry and Normal Turgor
Neuro: AAO x 3, Nonfocal/Grossly Intact and Central Nerve's Intact
Psych: Calm
Assessment/Plan
#Acute on chronic back pain
#H/O T12 and L2 compression fractures
#Ambulatory dysfunction
-following mechanical fall a few days prior to admission
-Has associated radicular symptoms and pain that limits her ambulatory function
-CT scan on arrival showed old age indeterminant compression fractures at T12 and L2
-Currently on Tylenol and Toradol as needed for pain as well as morphine for severe breakthrough
-PT/OT ordered, case management for SNF placement
-Medically stable for discharge, pending placement
#Constipation
-No bowel movement for 4 days leading up to 06/01/24
-Bowel regimen
-Dulcolax suppository on 06/01/24 with resulting large formed bowel movement
#Normocytic anemia
-Hemoglobin on arrival was 9.4, and then 10.9 on repeat, unclear baseline
-No obvious signs of bleeding, iron panel consistent with anemia of chronic disease
#Hypertension
-Home medication includes amlodipine 5 mg QD, no history of hypertensive systemic disease
-Suspect hypotension/orthostasis is bigger issue with H/O Parkinson's
-Will monitor BP closely for here, observe for signs of orthostasis
#Dyslipidemia
-No known ASCVD history, Home regimen includes moderate intensity statin
#Parkinson's disease
-Home medication includes carbidopa levodopa 3 times daily
-No known autonomic complications, no resting tremor on exam
-Stable
#GERD
-Home regimen includes oral PPI daily
-No history of Mireles's esophagus or erosive disease
-No red flag symptoms
#Chronic venous insufficiency
-Has mild, asymmetric lower extremity edema
-No history of heart disease, no symptoms or other signs suspicious for heart failure
-Encouraged leg elevation as possible, compression stockings
#Neurogenic Bladder
#History of Bowel Resection
DVT prophylaxis: Lovenox
Diet: Regular
CODE STATUS: Full code
More than 30 minutes spent in discharge including
Final examination of the patient
Summarizing hospital stay
Instructions for continuing care to all relevant caregivers
Preparation of discharge records, prescriptions, and referral forms
Total time spent (in minutes): 35
Anticipated Discharge: Today
Subjective/Interval History
-
Date of Service: June 03, 2024
Patient was seen and examined. No new significant symptoms or complaints.
Objective Data
-
Vital Signs:
Vital Signs
Temp Pulse Resp BP Pulse Ox
99.2 F 88 18 153/90 98
06/03/24 07:49 06/03/24 09:15 06/03/24 07:49 06/03/24 09:15 06/03/24 07:49
I&O
06/02/24 06/03/24 06/04/24
06:59 06:59 06:59
Intake Total 480 / 480
Balance 480 / 480
--- NOTE | 2024-06-03 15:38 | CM ---
continues to await [employer] determination for transfer to [facility]. I spoke with Michelle Zhang who advised that their fax has been problematic. I sent the clinical information via Secure email to Michelle linton today. Availity shows the
most recent update which is still 'Pending Review'.
[facility] has limited beds. If authorization is obtained before the end of the day, there should be a bed available. If the authorization is still not finalized, it is unclear if a bed will be available tomorrow; Octavio will not know until
about noon.
Octavio at [facility]: [phone]
--- NOTE | 2024-06-03 15:56 | CM ---
E-mail sent to [employer] [facility] in order to obtain determination. Received return e-mail from Zhanna asking for clarification of patient's name and auth number. Responded patient's full first name was Akil Magallanes, and correct ref number
is [id number]. Per Zhanna case is with nurse being reviewed and that she asked that it be escalated. Update to CM.
[2024-06-03 15:58] VITALS: BP 126/81
--- NOTE | 2024-06-03 16:15 | CM ---
Addendum entered by Rashida Fabian 06/03/24 17:00:
Ambulance transport time: 7:30pm-8pm machine pecan picker
Original Note:
CM authorization obtained for transfer to [facility] this evening. [employer] authorization obtained [id number] for dates of service 06/03-06/09/2024 with NRD 06/10/2024. Information provided by Nicky [phone].
I called bijal's sister, but she was not answering. I did reach Ayaka's son, however he was in the middle of something and would not take the address of [facility], asking that I call back later.
Ambulance transport to be arranged for this evening; time pending.
will follow up via telephone to notify family of transfer plans.
[facility] Report: [phone]
[facility]
[2024-06-03] MEDS: LOVENOX 40 MG SC (16:52)
--- NOTE | 2024-06-03 17:57 | PTCARENOTE ---
Called at 1800 to [facility] for report. The call went to [employer]. cell room supervisor at [phone]
--- NOTE | 2024-06-03 19:44 | PTCARENOTE ---
[employer] Lead gave report over the phone to Kavita from [facility]. Patient is being discharged and transported via ambulance. IV has been removed. Patient has home meds sent up from pharmacy.
[2024-06-03 19:55] VITALS: BP 131/73
== END 2024-06-03 20:21 ==
LOC: 4 EAST ACU 05:28
PROVIDERS: Internal Medicine; ADMITTING PHYSICIAN Internal Medicine; ATTENDING PHYSICIAN Hospitalist; EMERGENCY PHYSICIAN Student in an Organized Health Care Education/Training Program; FAMILY PHYSICIAN Internal Medicine
DX: G89.29 Other chronic pain (principal); M48.56XA Collapsed vertebra, not elsewhere classified, lumbar region, initial encounter for fracture; M48.54XA Collapsed vertebra, not elsewhere classified, thoracic region, initial encounter for fracture; M54.9 Dorsalgia, unspecified; R53.1 Weakness; M79.604 Pain in right leg; M54.50 Low back pain, unspecified; R26.2 Difficulty in walking, not elsewhere classified; R60.9 Edema, unspecified; R20.0 Anesthesia of skin; D64.9 Anemia, unspecified; E87.20 Acidosis, unspecified; K59.00 Constipation, unspecified; G20.A1 Parkinson's disease without dyskinesia, without mention of fluctuations; I10 Essential (primary) hypertension; E78.00 Pure hypercholesterolemia, unspecified; D63.8 Anemia in other chronic diseases classified elsewhere; E78.5 Hyperlipidemia, unspecified; I87.2 Venous insufficiency (chronic) (peripheral); K21.9 Gastro-esophageal reflux disease without esophagitis; W01.0XXA Fall on same level from slipping, tripping and stumbling without subsequent striking against object, initial encounter; Y93.01 Activity, walking, marching and hiking; Y92.9 Unspecified place or not applicable; N31.9 Neuromuscular dysfunction of bladder, unspecified; Z79.82 Long term (current) use of aspirin
CPT/HCPCS: 74177; 80048; 81003; 81015; 82607; 82728; 83540; 83550; 83605; 83735; 84443; 85025; 86803; 93005; 97163; 97167; 97530; 97535; 99285; Q9967